=== PATIENT | male | born 1940 | race Caucasian/White ===

== ENCOUNTER 2020-02-25 16:28 | Emergency (ER) | payer MEDICARE ==
--- NOTE | 2020-02-25 17:13 | RAD ---
Exam:3 views right hand HISTORY: Pain and injury. 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 Mild loss of j oint space height involving all 5 proximal and distal interphalangeal joint spaces. There is dorsal soft tissue swelling, without evidence of fracture. No radiopaque foreign body. IMPRESSION: 1. Soft tissue swelling without fracture. 2. Multi articular degenerative change.
[2020-02-25] MEDS ORDERED: Amoxicillin/Potassium Clav 875 MG TAB ONE (17:20)
[2020-02-25] MEDS ORDERED: Lidocaine 1% w/Epinephrine 1:100K 20 ML VIAL ONE (17:20)
== END 2020-02-25 18:50 | disposition home or self-care (01) ==
LOC: MADERS 16:28
DX: S61.411A Laceration without foreign body of right hand, initial encounter (principal); M19.90 Unspecified osteoarthritis, unspecified site; Z85.038 Personal history of other malignant neoplasm of large intestine; W23.0XXA Caught, crushed, jammed, or pinched between moving objects, initial encounter
CPT/HCPCS: 12044

== ENCOUNTER 2022-05-09 18:11 | Emergency (ER) | payer MEDICARE, OTHER | END 2022-05-09 20:08 | disposition home or self-care (01) | LOC: MADERS 18:11 | DX: S39.013A Strain of muscle, fascia and tendon of pelvis, initial encounter (principal); S50.311A Abrasion of right elbow, initial encounter; W19.XXXA Unspecified fall, initial encounter | CPT/HCPCS: 72192 ==

== ENCOUNTER 2024-10-13 00:46 | Emergency (ER) | payer MEDICARE, OTHER ==
[2024-10-13 01:34] LABS: #Basophils 0.1 thou/uL (0.0-0.2); #Eosinophils 0.3 thou/uL (0.0-0.7); #Lymphocytes 2.1 thou/uL (1.20-3.40); #Monocytes 0.7 thou/uL (0.11-0.59); #Neutrophils 4.2 thou/uL (1.40-6.50); %Eosinophils 3.8 % (0.0-10.0); %Lymphocytes 28.7 % (21.0-51.0); %Monocytes 9.1 % (0.0-10.0); %Neutrophils 57.4 % (42.0-75.0); Hematocrit 43.3 % (42.0-52.0); Hemoglobin 14.5 g/dL (14.0-18.0); Mean Corpuscular HGB CONC 33.6 g/dL (32.0-36.0); Mean Corpuscular Hemoglobin 30.5 pg (27.0-31.0); Mean Corpuscular Volume 90.9 fl (78.0-98.0); Mean Platelet Volume 10.7 fL (7.4-10.4); Platelet Count 181 10x3/uL (130-400); RBC Distribution Width 11.9 % (11.5-14.5); Red Blood Cell (RBC) Count 4.77 mill/uL (4.70-6.10); White Blood Cell (WBC) Count 7.3 10x3/uL (4.8-10.8)
[2024-10-13 01:51] LABS: ALT (SGPT) 16 U/L (Less than 45); AST (SGOT) 31 U/L (11-34); Albumin 3.6 g/dL (3.1-4.5); Alkaline Phosphatase 87 U/L (40-110); Anion Gap 15 mmol/L (10-20); BUN (Urea Nitrogen) 22 mg/dL (8.4-25.7); Bilirubin, Total 0.3 mg/dL (0.3-1.2); Calc. Creatinine Clearance 0 mL/min (70-130); Calcium 9.1 mg/dL (7.8-10.44); Carbon Dioxide 23 mmol/L (23-31); Chloride 107 mmol/L (98-107); Estimated GFR 62; Globulin 2.9 g/dL (2.4-3.5); Glucose 103 mg/dL (83-110); Magnesium 2.3 mg/dL (1.6-2.6); Potassium 4.1 mmol/L (3.5-5.1); Protein, Total 6.5 g/dL (5.8-8.1); Sodium 141 mmol/L (136-145)
== END 2024-10-13 02:25 | disposition home or self-care (01) ==
LOC: MADERS 00:46
DX: I49.3 Ventricular premature depolarization (principal); I49.1 Atrial premature depolarization; I48.91 Unspecified atrial fibrillation; Z79.01 Long term (current) use of anticoagulants
CPT/HCPCS: 36415; 80053; 83735; 84443; 85025; 93005; 94760; 99284